=== PATIENT | male | born 1945 | race Caucasian/White ===

== ENCOUNTER 2017-01-18 07:40 | Emergency (ER) | payer MEDICARE, BC ==
--- NOTE | ~2017-01-18 | CR229 ---
[facility] A Service of [facility] RADIOLOGY TEXT RESULTS PATIENT: BRUCE JOSEPH LOCATION: [facility] : [birth year] UNIT #: [id number] AGE: [address]: Elsie Washington APRN SEX: M ORDER DR: [id number] [facility] [address] [place], [place] [address] [id number] E MR#: [id number] Acc #: [id number] NAME: BRUCE JOSEPH. : 1945 SEX: M STUDY DATE/TIME: 01/18/2017 9:26 UNIT: [facility] ROOM: STUDY DESCRIPTION: CR Shoulder Min 2 View Lt Attending Physician: Elsie Washington A.P.R.N. Ordering Physician: Levi Navarro M.D. Primary Care Physician: Marcella Mcrae A.P.R.N. MEDICAL IMAGING REPORT This report is preliminary unless electronic signature is present EXAM Left shoulder 3 views INDICATION There is left shoulder pain for 3 days after falling. History of rotator cuff surgery. COMPARISON No comparisons. FINDINGS There is narrowing of the subacromial space with elevation of the humeral head upon the glenoid likely due to prior rotator cuff injury. There is no acute fracture or dislocation. Narrowing and degenerative change of the AC joint. IMPRESSION No acute findings. Degenerative changes as described. Dictated by... Dwayne Julian M.D. THIS IS AN ELECTRONICALLY VERIFIED REPORT Dwayne Julian M.D. at 01/18/2017 4:59 PM ARS/lily TD: 01/18/2017 13:26 JOB #: [id number] MEDICAL IMAGING REPORT Page 1 of 1 COPY
--- NOTE | ~2017-01-18 | CR181 ---
[facility] A Service of [facility] RADIOLOGY TEXT RESULTS PATIENT: BRUCE JOSEPH LOCATION: [facility] : 47 UNIT #: [id number] AGE: [address]: Elsie Washington APRN SEX: M ORDER DR: [id number] [facility] [address] [place], [place] [address] [id number] E MR#: [id number] Acc #: [id number] NAME: BRUCE JOSEPH. : 1945 SEX: M STUDY DATE/TIME: 01/18/2017 9:25 UNIT: [facility] ROOM: STUDY DESCRIPTION: CR Lumbar Spine 2 or 3 Views Attending Physician: Elsie Washington A.P.R.N. Ordering Physician: Levi Navarro M.D. Primary Care Physician: Denilson العراقيPRupaliRMelinda MEDICAL IMAGING REPORT This report is preliminary unless electronic signature is present EXAM Lumbar spine series, 01/18/2017. HISTORY Trauma. Fell, landed on tailbone on concrete. Pain in left shoulder lower back and tailbone, 3 days duration. History of left rotator cuff surgery years ago. TECHNIQUE AP and 2 lateral views of the lumbar spine are presented. FINDINGS Diminished bony mineralization. Alignment in lateral projection normal. Mild dextroscoliosis at thoracolumbar junction. No fracture. Moderate to marked narrowing of intervertebral disc spaces throughout the lumbar spine. Moderate to marked facet degenerative changes. Vertebral body heights are normal. Visualized lower thoracic spine and visualized bony pelvis show no acute abnormality. The visualized lung bases are clear and bowel gas pattern appears normal. Atherosclerotic arterial calcifications are seen. Dictated by... Gurinder France M.D. THIS IS AN ELECTRONICALLY VERIFIED REPORT Gurinder France M.D. at 01/20/2017 10:28 PM SHERYL/debra TD: 01/18/2017 13:41 JOB #: [id number] [facility] A Service of [facility] RADIOLOGY TEXT RESULTS PATIENT: BRUCE JOSEPH LOCATION: [facility] #: [id number] : 49 UNIT #: [id number] AGE: [address]: Elsie Washington APRN SEX: M ORDER DR: MEDICAL IMAGING REPORT Page 1 of 1 COPY
--- NOTE | ~2017-01-18 | CR219 ---
[facility] A Service of [facility] & [facility] RADIOLOGY TEXT RESULTS PATIENT: BRUCE JOSEPH LOCATION: [facility] : 49 UNIT #: [id number] AGE: [address]: Elsie Washington APRN SEX: M ORDER DR: [id number] [facility] [address] [place], [place] [address] [id number] E MR#: [id number] Acc #: [id number] NAME: BRUCE JOSEPH. : 1945 SEX: M STUDY DATE/TIME: 01/18/2017 9:26 UNIT: [facility] ROOM: STUDY DESCRIPTION: CR Sacrum and Coccyx Min 2 Vie Attending Physician: Elsie Washington A.P.R.N. Ordering Physician: Ed Kamar Navarro M.D. Primary Care Physician: Denilson العراقيPRupaliRMelinda MEDICAL IMAGING REPORT This report is preliminary unless electronic signature is present EXAM Sacral coccygeal series 01/18/2017. INDICATIONS Trauma 3 days ago, fell, landed on tailbone on concrete, pain in lower back and tailbone. FINDINGS AP lateral and inlet views of the sacrum and coccyx are presented. Degenerative changes in the visualized lumbar spine. See lumbar spine series for full discussion. Sacroiliac joints, sacral arcuate lines intact. There is no evidence of sacral coccygeal fracture or traumatic malalignment. Mild degenerative changes in the bilateral partially visualized hips. Visualized bowel gas pattern normal. Atherosclerotic arterial calcifications. If patient has persistent symptoms, consider followup imaging. Dictated by... Gurinder France M.D. THIS IS AN ELECTRONICALLY VERIFIED REPORT Gurinder France M.D. at 01/20/2017 10:28 PM SHERYL/mike TD: 01/18/2017 13:22 JOB #: [id number] MEDICAL IMAGING REPORT Page 1 of 1 COPY
[~2017-01-18 07:40] MED LIST: AMLODIPINE BESY10 MG PO; AMLODIPINE-BENA1 CAP PO; BAYER ASPIRIN325 M1 PO; BETAMETHASONE D50 GM TOP; CIPRO PO; DOCUSATE SODIU100 MG PO; FINASTERIDE5 M1 PO; FLOMAX0.4 M1 PO; HYDROCODON-ACE1 EAC7 PO; MELOXICAM15 MG PO
== END 2017-01-18 11:57 | disposition home or self-care (01) ==
LOC: CED 07:40
DX: S33.5XXA Sprain of ligaments of lumbar spine, initial encounter (principal); S40.012A Contusion of left shoulder, initial encounter; I10 Essential (primary) hypertension; F17.210 Nicotine dependence, cigarettes, uncomplicated; W18.00XA Striking against unspecified object with subsequent fall, initial encounter; Y92.9 Unspecified place or not applicable
CPT/HCPCS: 72100; 72220; 73030; 96372; 99284; J1885

== ENCOUNTER → 2017-03-13 | Outpatient (CLI) | payer MEDICARE, BC ==
--- NOTE | ~2017-03-13 | CT14 ---
[facility] A Service of [facility] RADIOLOGY TEXT RESULTS PATIENT: BRUCE JOSEPH LOCATION: [facility] : 47 UNIT #: [id number] AGE: [address]: Marcella Mcrae APRN SEX: M ORDER DR: [id number] [facility] [address] [place], [place] [address] [id number] O MR#: [id number] Acc #: [id number] NAME: BRUCE JOSEPH : 1945 SEX: M STUDY DATE/TIME: 03/13/2017 11:18 UNIT: [facility] ROOM: STUDY DESCRIPTION: CT Angio Abdomen and Pelvis Attending Physician: Marcella Mcrae A.P.R.N. Referring Physician: Marcella Mcrae A.P.R.N. Ordering Physician: Marcella Mcrae A.P.R.N. Primary Care Physician: Marcella Mcrae A.P.R.N. MEDICAL IMAGING REPORT This report is preliminary unless electronic signature is present EXAM CT angiography abdomen and pelvis. HISTORY Asymmetric blood pressure. Leg cramps 2-3 weeks in both lower legs, some lower abdomen discomfort. FINDINGS Please see CT ANGIO CHEST report for combined text results. Dictated by... Gurinder France M.D. THIS IS AN ELECTRONICALLY VERIFIED REPORT Gurinder France M.D. at 03/14/2017 6:04 PM Winston TD: 03/13/2017 21:43 JOB #: [id number] MEDICAL IMAGING REPORT Page 1 of 1 COPY
--- NOTE | ~2017-03-13 | CT20 ---
[facility] A Service of [facility] & [facility] RADIOLOGY TEXT RESULTS PATIENT: BRUCE JOSEPH [facility] : 47 UNIT #: [id number] AGE: [address]: Marcella Mcrae APRN SEX: M ORDER DR: [id number] [facility] [address] [place], [place] [address] [id number] O MR#: [id number] Acc #: [id number] NAME: BRUCE JOSEPH : 1945 SEX: M STUDY DATE/TIME: 03/13/2017 11:18 UNIT: [facility] ROOM: STUDY DESCRIPTION: CT Angio Lower Ext Juan Attending Physician: Marcella Mcrae A.P.R.N. Referring Physician: Marcella Mcrae A.P.R.N. Ordering Physician: Marcella Mcrae A.P.R.N. Primary Care Physician: Marcella Mcrae A.P.R.N. MEDICAL IMAGING REPORT This report is preliminary unless electronic signature is present EXAM CT angiography bilateral lower extremities. HISTORY Asymmetric blood pressure. Leg cramps 2-3 weeks in both lower legs, some lower abdomen discomfort. FINDINGS Please see CT ANGIO CHEST report for combined text results. Dictated by... Gurinder France M.D. THIS IS AN ELECTRONICALLY VERIFIED REPORT Gurinder France M.D. at 03/14/2017 6:04 PM Winston TD: 03/13/2017 21:44 JOB #: [id number] MEDICAL IMAGING REPORT Page 1 of 1 COPY
--- NOTE | ~2017-03-13 | CT15 ---
[facility] A Service of [facility] & [facility] RADIOLOGY TEXT RESULTS PATIENT: BRUCE JOSEPH [facility] : 47 UNIT #: [id number] AGE: [address]: Marcella Mcrae APRN SEX: M ORDER DR: [id number] [facility] [address] [place], [place] [address] [id number] O MR#: [id number] Acc #: [id number] NAME: BRUCE JOSEPH : 1945 SEX: M STUDY DATE/TIME: 03/13/2017 11:18 UNIT: [facility] ROOM: STUDY DESCRIPTION: CT Angio Chest Attending Physician: Marcella Mcrae A.P.R.N. Referring Physician: Marcella Mcrae A.P.R.N. Ordering Physician: Marcella Mcrae A.P.R.N. Primary Care Physician: Marcella Mcrae A.P.R.N. MEDICAL IMAGING REPORT This report is preliminary unless electronic signature is present EXAM CT angiography chest, abdomen, pelvis, bilateral lower extremities. HISTORY Asymmetric blood pressure. Leg cramps 2-3 weeks in both lower legs, some lower abdomen discomfort. TECHNIQUE CT angiography of the chest, abdomen, pelvis and bilateral lower extremities was performed with intravenous administration of 125 mL Isovue-370. Multiple three-dimensional reconstructions performed through the arterial structures. This CT exam was performed with one or more of the following radiation dose reduction techniques: Automatic exposure control, adjustment of mA and/or kV according to patient size, and iterative reconstruction. No prior angiographic imaging of chest, abdomen, pelvis, lower extremities for comparison. FINDINGS The visualized thyroid is unremarkable. No axillary, mediastinal or hilar adenopathy. Heart normal in size. No pleural effusions. The lungs show no acute pulmonary disease. Small, calcified granuloma right lung base. No suspicious nodule. No pleural effusion and no pneumothorax. CT ABDOMEN: The liver, gallbladder, spleen, pancreas, adrenal glands unremarkable. There are focal areas of cortical thinning, mild in degree, in the bilateral kidneys likely reflecting prior episodes of infection or prior vascular insult. There is no acute appearing renal abnormality. CT PELVIS: No inguinal adenopathy. Urinary bladder, prostate unremarkable. No fluid collections in the pelvis. No pelvic or retroperitoneal adenopathy. Esophagus, stomach, small bowel unremarkable. Patient appears to be status post appendectomy. The colon is unremarkable. The nonvascular lower extremity soft tissues are STS. [facility] A Service of [facility] RADIOLOGY TEXT RESULTS PATIENT: BRUCE JOSEPH LOCATION: [facility] : 49 UNIT #: [id number] AGE: [address]: Marcella Mcrae APRN SEX: M ORDER DR: unremarkable. The bony structures show evidence of prior orthopedic intervention right shoulder. Multilevel degenerative changes in the lumbar spine. Multilevel posterior disc-osteophyte complexes at the L1-L2, L2-L3, L3-L4, L4-L5, L5-S1 levels with multifocal gyqw-pq-ywdwqyhq central spinal canal narrowing and narrowing of the bilateral lateral recesses. Findings probably most pronounced overall at the L2-L3, L3-L4, L4-L5 levels. Multilevel foraminal narrowing probably most pronounced L4-L5, L5-S1. Degenerative changes in the bilateral knees. There is evidence of chondrocalcinosis in the bilateral knees. No acute appearing bony abnormality. VASCULAR ANATOMY: There are coronary arterial calcifications. 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 The ascending aorta measures up to approximately 3.3-3.4 cm in diameter. The great vessel origins are patent. There is mild atherosclerotic disease in the kdcfhzll-ok-lux left subclavian artery. There is some ulcerated plaque in the left subclavian artery. There is no indication of flow-limiting stenosis in the left subclavian artery. There is gglmphlo-by-qulajo narrowing at the origin of the left vertebral artery. The left common carotid artery is patent in visualized extent. The innominate artery is patent, as is the right common carotid artery. There is prominent atherosclerotic calcified plaque at the origin of the right subclavian artery. There is at least moderate luminal narrowing at the origin of the right subclavian artery and more likely severe narrowing. Exact degree of narrowing difficult to determine on this examination due to the prominent calcified plaque in this region. Overall, I would favor that the plaque at the origin of the right subclavian artery is causing hemodynamically significant luminal narrowing. Patient's history does not specify laterality of asymmetric upper extremity blood pressures. Correlate clinically. The right subclavian artery is otherwise patent. The right vertebral artery is patent in visualized extent, though smaller than on the left. The right common carotid artery is patent. The descending thoracic aorta is normal in caliber with no dissection. The celiac axis is patent. There is swqf-qo-nwfmrygv disease at its origin. The superior mesenteric artery is patent. Yryj-ix-vxkjqbfj disease at its origin. Single renal arteries bilaterally which appear patent with only minimal atherosclerotic disease at their origins. The inferior mesenteric artery is patent with probably tswbyjbx-zx-yxdgku disease at its origin. Abdominal aorta is normal in overall caliber. There is fdjj-jg-mmytrvav disease in the bilateral common iliac arteries. There is some ulcerated plaque in the left common iliac artery. There is probably not flow-limiting stenosis in the bilateral common iliac arteries. The bilateral internal iliac arteries are patent with dwek-en-oztganlm atherosclerotic disease. The bilateral external iliac arteries are patent with mild/ffmf-ep-dxewnvpx atherosclerotic plaque. The common femoral arteries are patent bilaterally. On the right, profunda femoris and superficial femoral artery appear widely patent. Right popliteal artery is patent. Mild atherosclerotic disease distal below-knee popliteal artery. On the right, [facility]. [facility] A Service of [facility] RADIOLOGY TEXT RESULTS PATIENT: BRUCE JOSEPH LOCATION: [facility] : 49 UNIT #: [id number] AGE: [address]: Marcella Mcrae APRN SEX: M ORDER DR: there is three-vessel runoff to the ankle with anterior and posterior tibial arteries continuing into the foot. On the left, common femoral artery shows no significant luminal narrowing. There is mild plaque at the origin of the left superficial femoral artery without evidence of flow-limiting stenosis. The left profunda femoris and superficial femoral artery are patent throughout their course. There is okeg-me-uxmmrgun disease in the above-knee left popliteal artery with a focal area of probably 50% luminal narrowing due to calcified plaque. Ydkv-ws-gkpwfrpx disease in the behind knee popliteal artery. There is three-vessel runoff in the left foreleg to the ankle with anterior and posterior tibial arteries extending into the foot. IMPRESSION 1. Please see the complete dictation above for full details. Please see section of report labeled "vascular anatomy" for complete assessment of the vascular system. 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 The ascending aorta measures 3.3-3.4 cm in diameter. Descending thoracic aorta and abdominal aorta normal caliber. The great vessel origins are patent. There is prominent calcified atherosclerotic plaque at the most distal innominate artery and at the origin of the right subclavian artery. I believe there is hemodynamically significant luminal narrowing at the origin of the right subclavian artery, though the exact percentage of luminal narrowing is difficult to determine on the basis of this examination, due to obliquity of the vessels and the prominent calcified plaque at origin of the subclavian artery. The patient's asymmetry of upper extremity pressures is not fully described in history. I would favor that there is significant narrowing at the origin of the right subclavian artery and probable decreased upper extremity pressure on the right. Correlate clinically. This finding could be further evaluated with catheter angiography. 2. Please see complete discussion of aortic branch vessel anatomy in body of report. Oezv-ue-ngchhelt atherosclerotic disease at the origins of the celiac axis and superior mesenteric artery. Jbtzosce-ij-qtodir disease origin inferior mesenteric artery. Mild disease bilateral renal artery origins. 3. Moderate common iliac artery disease bilaterally, probably not flow limiting. 4. The bilateral lower extremity arteries notable for a focal area of moderate perhaps 50% luminal narrowing in the left above-knee popliteal artery. Milder atherosclerotic disease elsewhere. The bilateral lower extremities show bilateral three-vessel runoff in the forelegs with anterior and posterior tibial arteries extending into the feet bilaterally. 5. No acute pulmonary disease. 6. No acute abnormalities seen within the abdomen or pelvis. See details in body of report. 7. Degenerative changes in the lumbar spine. Gczp-lz-eoervrkm STS. [facility] A Service of [facility] RADIOLOGY TEXT RESULTS PATIENT: BRUCE JOSEPH LOCATION: [facility] : 49 UNIT #: [id number] AGE: [address]: Marcella Mcrae APRN SEX: M ORDER DR: central spinal canal narrowing at multiple levels probably most pronounced L3-L4, L4-L5. Study not tailored for assessment of the lumbar spine. If it would assist in management, lumbar spine could best be further evaluated with MRI or dedicated CT. 8. There are coronary arterial calcifications. 9. Not mentioned in body of report above, the study, while not tailored for assessment of the pulmonary arteries, shows no evidence of acute pulmonary artery abnormality. Dictated by... Gurinder France M.D. THIS IS AN ELECTRONICALLY VERIFIED REPORT Gurinder France M.D. at 03/14/2017 6:04 PM SHERYL/evelyne TD: 03/13/2017 21:39 JOB #: [id number] MEDICAL IMAGING REPORT Page 1 of 1 COPY
[2017-03-13 12:26] LABS: POC - CREATININE 1.11 mg/dL (0.64-1.27); POC - GFR >60.0 mL/min (>60)
== END | disposition home or self-care (01) ==
LOC: CCAT 10:30
PROVIDERS: Nurse Practitioner
DX: I99.8 Other disorder of circulatory system (principal); I70.8 Atherosclerosis of other arteries; K55.1 Chronic vascular disorders of intestine; M47.896 Other spondylosis, lumbar region; M48.06 Spinal stenosis, lumbar region; I25.10 Atherosclerotic heart disease of native coronary artery without angina pectoris
CPT/HCPCS: 71275; 73706; 74174; 82565; Q9967